=== PATIENT | male | born 1970 | race Caucasian/White ===

== ENCOUNTER 2017-01-16 22:26 | Emergency (ER) | payer BC ==
--- NOTE | 2017-01-16 22:48 | EDM.PDOC ---
ED HPI GENERAL MEDICAL PROBLEM - General Chief Complaint: Genitourinary Problem Stated Complaint: INFECTION/SWOLLEN LT TESTICLE Time Seen by Provider: 01/16/17 22:39 - History of Present Illness INITIAL COMMENTS - FREE TEXT/NARRATIVE: HISTORY AND PHYSICAL: History of present illness: Patient 46-year-old male presents with testicular pain and swelling for 2 days he denies urethral discharge denies genital lesions denies history of STD or exposure denies high risk activity denies direct trauma Review of systems: As per history of present illness and below otherwise all systems reviewed and negative. Past medical history: As per history of present illness and as reviewed below otherwise noncontributory. Surgical history: As per history of present illness and as reviewed below otherwise noncontributory. Social history: No reported history of drug or alcohol abuse. Family history: As per history of present illness and as reviewed below otherwise noncontributory. Physical exam: HEENT: Atraumatic, normocephalic, pupils reactive, negative for conjunctival pallor or scleral icterus, mucous membranes moist, throat clear, neck supple, nontender, trachea midline. Lungs: Clear to auscultation, breath sounds equal bilaterally, chest nontender. Heart: S1S2, regular, negative for clicks, rubs, or JVD. Abdomen: Soft, nondistended, nontender. Negative for masses or hepatosplenomegaly. Negative for costovertebral tenderness. Pelvis: Stable nontender. Genitourinary: Left testicle/epididymis with tenderness and swelling no fluctuance no induration Rectal: Deferred. Extremities: Atraumatic, negative for cords or calf pain. Neurovascular unremarkable. Neuro: Awake, alert, oriented. Cranial nerves II through XII unremarkable. Cerebellum unremarkable. Motor and sensory unremarkable throughout. Exam nonfocal. Diagnostics: CBC CMP UA urine for GC/Chlamydia testicular ultrasound Therapeutics: None Impression: #1 epididymo-orchitis Definitive disposition and diagnosis as appropriate pending reevaluation and review of above. Left Groin Pain Score (Numeric/FACES): 7 - Related Data Allergies Allergy/AdvReac Type Severity Reaction Status Date / Time No Known Allergies Allergy Verified 01/16/17 22:32 ED ROS GENERAL - Review of Systems Review Of Systems: ROS reveals no pertinent complaints other than HPI. ED EXAM, GENERAL - Physical Exam Exam: See Below (see dictation) Course - Vital Signs Last Recorded V/S: Last Vital Signs Temp 36.8 C 01/16/17 22:29 Pulse 89 01/16/17 22:29 Resp 16 01/16/17 22:29 BP 175/97 H 01/16/17 22:29 Pulse Ox 97 01/16/17 22:29 - Orders/Labs/Meds Orders: Active Orders 24 hr Category Date Time Status CBC WITH AUTO DIFF [HEME] Stat Lab 01/16/17 22:40 Ordered COMPREHENSIVE METABOLIC PN,CMP [CHEM] Stat Lab 01/16/17 22:40 Ordered CULTURE URINE [RM] Stat Lab 01/16/17 22:40 Uncollected UA W/MICROSCOPIC [URIN] Stat Lab 01/16/17 22:40 Uncollected Departure - Departure Time of Disposition: 22:44 Disposition: Home, Self-Care 01 Condition: good Clinical Impression: Epididymo-orchitis Forms: ED Department Discharge Additional Instructions: The following information is given to patients seen in the emergency department who are being discharged to home. This information is to outline your options for follow-up care. We provide all patients seen in our emergency department with a follow-up referral. The need for follow-up, as well as the timing and circumstances, are variable depending upon the specifics of your emergency department visit. If you don't have a primary care physician on staff, we will provide you with a referral. We always advise you to contact your personal physician following an emergency department visit to inform them of the circumstance of the visit and for follow-up with them and/or the need for any referrals to a consulting specialist. The emergency department will also refer you to a specialist when appropriate. This referral assures that you have the opportunity for followup care with a specialist. All of these measure are taken in an effort to provide you with optimal care, which includes your followup. Under all circumstances we always encourage you to contact your private physician who remains a resource for coordinating your care. When calling for followup care, please make the office aware that this follow-up is from your recent emergency room visit. If for any reason you are refused follow-up, please contact the [facility] emergency department at and asked to speak to the emergency department charge nurse. [facility] - Urology [address] [place] [id number] Doxycycline as prescribed followup urology above as discussed athletic supporter as directed return as needed as discussed - My Orders Last 24 Hours: My Active Orders 01/16/17 22:40 CBC WITH AUTO DIFF [HEME] Stat COMPREHENSIVE METABOLIC PN,CMP [CHEM] Stat CULTURE URINE [RM] Stat UA W/MICROSCOPIC [URIN] Stat - Assessment/Plan Last 24 Hours: My Active Orders 01/16/17 22:40 CBC WITH AUTO DIFF [HEME] Stat COMPREHENSIVE METABOLIC PN,CMP [CHEM] Stat CULTURE URINE [RM] Stat UA W/MICROSCOPIC [URIN] Stat
[2017-01-16] MEDS ORDERED: Sodium Chloride 0.9% 1,000 ML IV ONE (22:53)
[2017-01-16] MEDS ORDERED: cefTRIAXone 1 GM in Premix Bag 1 BAG IV ONE (22:53)
[2017-01-16 23:21] LABS: CHLORIDE,CL 104 mmol/L (98-110); SODIUM,NA 142 mmol/L (136-146)
[2017-01-17 00:28] VITALS: BP 147/91
--- NOTE | 2017-01-17 10:07 | US ---
EXAM DATE: 01/16/17 PATIENT'S AGE: 46 Patient: EDSON MURPHY Facility: [place], [place] Site . Site : 1970 Study: US Testicle [id number]/19/2017 11:46:41 PM Ordering Physician: Mirela Mulligan Final Report: INDICATION: Left scrotal pain and swelling TECHNIQUE: Ultrasound of the scrotum and contents. Sonographic caputo-scale images were obtained with spectral and color Doppler waveform and spectral waveform analysis of the testicles. COMPARISON: None available FINDINGS: Right testicle: 4.0 x 3.4 x 2.2 cm. Normal echotexture. No masses. No suspicious calcifications. Normal arterial and venous and blood flow using Doppler and spectral waveform analysis. Left testicle: 3.6 x 3.4 x 2.4 cm. Normal echotexture. No masses. No suspicious calcifications. Normal arterial and venous and blood flow using Doppler and spectral waveform analysis. Epididymis: Mildly prominent and heterogeneous left epididymis, demonstrating increased Doppler vascular flow. A 0.6 x 0.4 centimeter left epididymal cyst. Other: Small bilateral hydroceles. IMPRESSION: Mildly prominent and heterogeneous left epididymis demonstrating increased Doppler flow, compatible with left epididymitis. Symmetrical testicular Doppler flow. Small hydroceles. A small left epididymal cyst. Dictated by Eliu Machuca MD @ 01/16/2017 11:53:31 PM Dictated by: Eliu Machuca MD @ 01/16/2017 23:53:38 (Electronic Signature) Report Signed by Proxy and Original Signed Document filed in the Medical Record. BRENNAN
--- NOTE | 2017-01-17 10:08 | US ---
EXAM DATE: 01/16/17 PATIENT'S AGE: 46 Patient: EDSON MURPHY Facility: [place], [place] Site . Site : 1970 Study: US Testicle [id number]/19/2017 11:46:41 PM Ordering Physician: Mirela Mulligan Final Report: INDICATION: Left scrotal pain and swelling TECHNIQUE: Ultrasound of the scrotum and contents. Sonographic caputo-scale images were obtained with spectral and color Doppler waveform and spectral waveform analysis of the testicles. COMPARISON: None available FINDINGS: Right testicle: 4.0 x 3.4 x 2.2 cm. Normal echotexture. No masses. No suspicious calcifications. Normal arterial and venous and blood flow using Doppler and spectral waveform analysis. Left testicle: 3.6 x 3.4 x 2.4 cm. Normal echotexture. No masses. No suspicious calcifications. Normal arterial and venous and blood flow using Doppler and spectral waveform analysis. Epididymis: Mildly prominent and heterogeneous left epididymis, demonstrating increased Doppler vascular flow. A 0.6 x 0.4 centimeter left epididymal cyst. Other: Small bilateral hydroceles. IMPRESSION: Mildly prominent and heterogeneous left epididymis demonstrating increased Doppler flow, compatible with left epididymitis. Symmetrical testicular Doppler flow. Small hydroceles. A small left epididymal cyst. Dictated by Eliu Machuca MD @ 01/16/2017 11:53:31 PM Dictated by: Eliu Machuca MD @ 01/16/2017 23:53:38 (Electronic Signature) Report Signed by Proxy and Original Signed Document filed in the Medical Record. BRENNAN
== END 2017-01-17 00:28 | disposition home or self-care (01) ==
LOC: MW.ED 22:26
DX: N45.3 Epididymo-orchitis (principal)
CPT/HCPCS: 36415; 76870; 80053; 81001; 85025; 87086; 87491; 87591; 93976; 96361; 96365; 99284; J0696; J7040; 99283